=== PATIENT | female | born 1925 | race Caucasian/White ===

== ENCOUNTER 2016-06-10 14:41 | Inpatient (IN) | payer MEDICARE ==
[2016-06-10] MEDS ORDERED: Acetaminophen 650 MG Supp RECTAL ONE (14:55)
[2016-06-10] MEDS ORDERED: Acetaminophen 650 MG Supp ONE (14:57)
[2016-06-10] MEDS ORDERED: Sodium Chloride 0.9% 10 ML Syringe FLUSH PRN (14:59)
[2016-06-10] MEDS ORDERED: Sodium Chloride 0.9% 1,000 ML IV ONE (15:00)
--- NOTE | 2016-06-10 15:13 | EDM.PDOC ---
ED HISTORY OF PRESENT ILLNESS - General Stated Complaint: UNRESPONSIVE Time Seen by Provider: 06/10/16 15:08 Source: Reports: EMS, assisted records History Limitations: Reports: Altered mental status - History of Present Illness INITIAL COMMENTS - FREE TEXT/NARRATIVE: c/o fever and dec'd alertness pt lived at [facility] for over 2y, has dementia, speaks a few words at baseline, reported to have eaten lunch and then less alert and noted to have a temp sent to ED via EMS, full code, has 3 sons listed on NH face sheet reported to be in baseline health this AM - Related Data Allergies/ADRs: Allergies Allergy/AdvReac Type Severity Reaction Status Date / Time No Known Allergies Allergy Verified 06/10/16 15:06 Home Meds: Home Meds Acetaminophen [Tylenol Extra Strength] 1,000 mg PO TID 06/10/16 [History] Celecoxib [CeleBREX] 200 mg PO DAILY 06/10/16 [History] Dextran 70/Hypromellose [Artificial Tears Eye Drops] 1 drop EYEBOTH QID [History] Donepezil HCl [Aricept] 10 mg PO BEDTIME 06/10/16 [History] ED ROS GENERAL - Review of Systems Review Of Systems: See Below Constitutional: Reports: fever, weakness HEENT: Reports: No symptoms Respiratory: Reports: Shortness of Breath Cardiovascular: Reports: No symptoms Endocrine: Reports: no symptoms GI/Abdominal: Reports: No symptoms : Reports: no symptoms Musculoskeletal: Reports: no symptoms Skin: Reports: no symptoms Neurological: Reports: No Symptoms Psychiatric: Reports: Other (dementia) Hematologic/Lymphatic: Reports: no symptoms Immunologic: Reports: no symptoms ED EXAM, GENERAL - Physical Exam Exam: See Below Exam Limited By: Altered mental status General Appearance: mild distress, other Eye Exam: bilateral eye: other (eyes closed, does respond to voice, moans, does not answer questions) Ears: normal external exam Nose: normal inspection, normal mucosa, no blood Throat/Mouth: Normal inspection, Normal lips, Normal oropharynx, Normal voice, No airway compromise Head: atraumatic, normocephalic Neck: normal inspection, supple, non-tender, full range of motion Respiratory/Chest: other (good AE, scattered exp wheezes in anterior wright b/l , no wheezes or rales in posterior wright, mild tachypnea, no cough observed, 100% on NRB, request made to change to 2 l/min via NC, has nail setswana on fingernails) Cardiovascular: other (nl S1/S2, no S3/S4, tachy, 2/6 CHAD at LSB, precordium quiet, 1-2+ edema to knees b/l with impression in skin at sock line, dec'd skin turgor UE with 0.5 sec tenting b/l) GI/Abdominal: soft, non tender, no organomegaly, no distention, no mass Back Exam: normal inspection, full range of motion, NT Extremities: normal range of motion, non-tender Neurological: oriented, CN II-XII intact, no motor/sensory deficits Skin Exam: Warm, Dry, Intact, Normal color, No rash Lymphatic: no adenopathy EKG INTERPRETATION EKG Interpretation Comments: ST 117, VPC x 1, probable LAE, LAFB, no ST change Course - Vital Signs Last Recorded V/S: Last Vital Signs Temp 39.4 C H 06/10/16 14:45 Pulse 66 06/10/16 14:45 Resp 28 H 06/10/16 14:45 BP 157/64 H 06/10/16 14:45 Pulse Ox 85 L 06/10/16 14:45 - Orders/Labs/Meds Orders: Active Orders 24 hr Category Date Time Status EKG Documentation Completion [RC] ASDIRECTED Care 06/10/16 14:57 Active Insert Urinary Catheter [OM.PC] Q24H Care 06/10/16 15:00 Ordered Oxygen Therapy [RC] ASDIRECTED Care 06/10/16 15:16 Active Urinary Catheter Assessment [RC] QSHIFT Care 06/10/16 14:56 Active Chest 1V Frontal [CR] Stat Exams 06/10/16 14:56 Taken CULTURE BLOOD [BC] Urgent Lab 06/10/16 15:15 Received CULTURE BLOOD [BC] Urgent Lab 06/10/16 15:20 Received Azithromycin [Zithromax] 500 mg Med 06/10/16 16:00 Active Sodium Chloride 0.9% [Normal Saline] 250 ml IV Q24H Sodium Chloride 0.9% [Normal Saline] 1,000 ml Med 06/10/16 15:00 Active IV .BOLUS Sodium Chloride 0.9% [Saline Flush] Med 06/10/16 14:59 Active 10 ml FLUSH ASDIRECTED PRN cefTRIAXone [Rocephin] 1 gm Med 06/10/16 16:00 Active Sodium Chloride 0.9% [Normal Saline] 50 ml IV Q24H Blood Culture x2 Reflex Set [OM.PC] Urgent Oth 06/10/16 15:23 Ordered Saline Lock Insert [OM.PC] Routine Oth 06/10/16 14:59 Ordered EKG 12 Lead [EK] Routine Ther 06/10/16 14:56 Ordered Medication Orders Sodium Chloride (Normal Saline) 1,000 mls @ 250 mls/hr IV .BOLUS ONE Stop: 06/10/16 18:59 Last Admin: 06/10/16 15:10 Dose: 250 mls/hr Azithromycin 500 mg/ Sodium (Chloride) 250 mls @ 250 mls/hr IV Q24H [facility] Last Admin: 06/10/16 16:10 Dose: 250 mls/hr Ceftriaxone Sodium 1 gm/ (Sodium Chloride) 50 mls @ 100 mls/hr IV Q24H [facility] Last Admin: 06/10/16 16:10 Dose: 100 mls/hr Sodium Chloride (Saline Flush) 10 ml FLUSH ASDIRECTED PRN PRN Reason: Keep Vein Open Labs: Laboratory Tests 06/10/16 06/10/16 06/10/16 Range/Units 15:05 15:15 15:15 WBC 15.0 H (4.5-12.0) X10-3/uL RBC 4.30 (3.23-5.20) x10(6)uL Hgb 13.8 (11.5-15.5) g/dL Hct 40.7 (30.0-51.3) % MCV 94.6 (80-96) fL MCH 32.2 (27.7-33.6) pg MCHC 34.0 (32.2-35.4) g/dL RDW 12.7 (11.5-15.5) % Plt Count 236 (125-369) X10(3)uL MPV 8.4 (7.4-10.4) fL Add Manual Diff Yes Neutrophils % (Manual) 82 (46-82) % Band Neutrophils % 6 (0-6) % Lymphocytes % (Manual) 8 L (13-37) % Monocytes % (Manual) 4 (4-12) % ABG pH (7.35-7.45) ABG pCO2 (35-45) mmHg ABG pO2 (83-108) mmHg ABG HCO3 (22-26) mmol/L ABG O2 Saturation (96-97) % ABG Base Excess Yordan Test VBG pH O2 Delivery Device Oxygen Flow Rate L Sodium 138 (135-145) mmol/L Potassium 3.3 L (3.5-5.3) mmol/L Chloride 105 (100-110) mmol/L Carbon Dioxide 24 (23-29) mmol/L BUN 22 (8-23) mg/dL Creatinine 0.5 L (0.6-1.3) mg/dL Est Cr Clr Drug Dosing TNP Estimated GFR (MDRD) > 60 (>60) BUN/Creatinine Ratio 44.0 H (9-20) Glucose 177 H (80-116) mg/dL Lactic Acid (0.5-2.2) mmol/L Calcium 9.1 (8.6-10.2) mg/dL Total Bilirubin 1.4 H (0.1-1.3) mg/dL AST 27 (5-27) IU/L ALT 20 (14-26) IU/L Alkaline Phosphatase 72 (56-112) IU/L Troponin I (0.02-0.06) NG/ML C-Reactive Protein 0.6 (0.0-1.0) mg/dL B-Natriuretic Peptide (0-100) pg/mL Total Protein 7.1 (6.0-8.0) g/dL Albumin 4.3 (3.2-4.6) g/dL Globulin 2.8 g/dL Albumin/Globulin Ratio 1.5 Urine Color Yellow (YELLOW) Urine Appearance Slightly cloudy (CLEAR) Urine pH 6.0 (5.0-6.5) Ur Specific [place] 1.015 (1.010-1.025) Urine Protein Negative (NEGATIVE) mg/dL Urine Glucose (UA) Normal (NEGATIVE) mg/dL Urine Ketones 50 H (NEGATIVE) mg/dL Urine Occult Blood Moderate H (NEGATIVE) Urine Nitrite Negative (NEGATIVE) Urine Bilirubin Negative (NEGATIVE) Urine Urobilinogen Normal (NEGATIVE) mg/dL Ur Leukocyte Esterase Negative (NEGATIVE) Urine RBC 0-5 (0) Urine WBC 0-5 (0) Ur Squamous Epith Cells Occasional (NS,R,O) Urine Bacteria Few H (NS) 06/10/16 06/10/16 06/10/16 Range/Units 15:15 15:15 15:15 WBC (4.5-12.0) X10-3/uL RBC (3.23-5.20) x10(6)uL Hgb (11.5-15.5) g/dL Hct (30.0-51.3) % MCV (80-96) fL MCH (27.7-33.6) pg MCHC (32.2-35.4) g/dL RDW (11.5-15.5) % Plt Count (125-369) X10(3)uL MPV (7.4-10.4) fL Add Manual Diff Neutrophils % (Manual) (46-82) % Band Neutrophils % (0-6) % Lymphocytes % (Manual) (13-37) % Monocytes % (Manual) (4-12) % ABG pH (7.35-7.45) ABG pCO2 (35-45) mmHg ABG pO2 (83-108) mmHg ABG HCO3 (22-26) mmol/L ABG O2 Saturation (96-97) % ABG Base Excess Yordan Test VBG pH O2 Delivery Device Oxygen Flow Rate L Sodium (135-145) mmol/L Potassium (3.5-5.3) mmol/L Chloride (100-110) mmol/L Carbon Dioxide (23-29) mmol/L BUN (8-23) mg/dL Creatinine (0.6-1.3) mg/dL Est Cr Clr Drug Dosing Estimated GFR (MDRD) (>60) BUN/Creatinine Ratio (9-20) Glucose (80-116) mg/dL Lactic Acid 1.8 (0.5-2.2) mmol/L Calcium (8.6-10.2) mg/dL Total Bilirubin (0.1-1.3) mg/dL AST (5-27) IU/L ALT (14-26) IU/L Alkaline Phosphatase (56-112) IU/L Troponin I < 0.01 L (0.02-0.06) NG/ML C-Reactive Protein (0.0-1.0) mg/dL B-Natriuretic Peptide 84 (0-100) pg/mL Total Protein (6.0-8.0) g/dL Albumin (3.2-4.6) g/dL Globulin g/dL Albumin/Globulin Ratio Urine Color (YELLOW) Urine Appearance (CLEAR) Urine pH (5.0-6.5) Ur Specific [place] (1.010-1.025) Urine Protein (NEGATIVE) mg/dL Urine Glucose (UA) (NEGATIVE) mg/dL Urine Ketones (NEGATIVE) mg/dL Urine Occult Blood (NEGATIVE) Urine Nitrite (NEGATIVE) Urine Bilirubin (NEGATIVE) Urine Urobilinogen (NEGATIVE) mg/dL Ur Leukocyte Esterase (NEGATIVE) Urine RBC (0) Urine WBC (0) Ur Squamous Epith Cells (NS,R,O) Urine Bacteria (NS) 06/10/16 Range/Units 15:15 WBC (4.5-12.0) X10-3/uL RBC (3.23-5.20) x10(6)uL Hgb (11.5-15.5) g/dL Hct (30.0-51.3) % MCV (80-96) fL MCH (27.7-33.6) pg MCHC (32.2-35.4) g/dL RDW (11.5-15.5) % Plt Count (125-369) X10(3)uL MPV (7.4-10.4) fL Add Manual Diff Neutrophils % (Manual) (46-82) % Band Neutrophils % (0-6) % Lymphocytes % (Manual) (13-37) % Monocytes % (Manual) (4-12) % ABG pH 7.53 H (7.35-7.45) ABG pCO2 25 L (35-45) mmHg ABG pO2 47 L* (83-108) mmHg ABG HCO3 20 L (22-26) mmol/L ABG O2 Saturation 88 L (96-97) % ABG Base Excess TNP Yordan Test Not performed VBG pH Cancelled O2 Delivery Device Nasal cannula Oxygen Flow Rate 0 L Sodium (135-145) mmol/L Potassium (3.5-5.3) mmol/L Chloride (100-110) mmol/L Carbon Dioxide (23-29) mmol/L BUN (8-23) mg/dL Creatinine (0.6-1.3) mg/dL Est Cr Clr Drug Dosing Estimated GFR (MDRD) (>60) BUN/Creatinine Ratio (9-20) Glucose (80-116) mg/dL Lactic Acid (0.5-2.2) mmol/L Calcium (8.6-10.2) mg/dL Total Bilirubin (0.1-1.3) mg/dL AST (5-27) IU/L ALT (14-26) IU/L Alkaline Phosphatase (56-112) IU/L Troponin I (0.02-0.06) NG/ML C-Reactive Protein (0.0-1.0) mg/dL B-Natriuretic Peptide (0-100) pg/mL Total Protein (6.0-8.0) g/dL Albumin (3.2-4.6) g/dL Globulin g/dL Albumin/Globulin Ratio Urine Color (YELLOW) Urine Appearance (CLEAR) Urine pH (5.0-6.5) Ur Specific [place] (1.010-1.025) Urine Protein (NEGATIVE) mg/dL Urine Glucose (UA) (NEGATIVE) mg/dL Urine Ketones (NEGATIVE) mg/dL Urine Occult Blood (NEGATIVE) Urine Nitrite (NEGATIVE) Urine Bilirubin (NEGATIVE) Urine Urobilinogen (NEGATIVE) mg/dL Ur Leukocyte Esterase (NEGATIVE) Urine RBC (0) Urine WBC (0) Ur Squamous Epith Cells (NS,R,O) Urine Bacteria (NS) Meds: Medications Generic Name Dose Route Start Last Admin Trade Name Freq PRN Reason Stop Dose Admin Sodium Chloride 1,000 mls @ 250 mls/hr 06/10/16 15:00 06/10/16 15:10 Normal Saline IV 06/10/16 18:59 250 mls/hr .BOLUS ONE Administration Azithromycin 500 mg/ Sodium 250 mls @ 250 mls/hr 06/10/16 16:00 06/10/16 16: 10 Chloride IV 250 mls/hr Q24H [facility]AY Administration Ceftriaxone Sodium 1 gm/ 50 mls @ 100 mls/hr 06/10/16 16:00 06/10/16 16:10 Sodium Chloride IV 100 mls/hr Q24H [facility] Administration Sodium Chloride 10 ml 06/10/16 14:59 Saline Flush FLUSH ASDIRECTED PRN Keep Vein Open Discontinued Medications Generic Name Dose Route Start Last Admin Trade Name Freq PRN Reason Stop Dose Admin Acetaminophen Confirm 06/10/16 14:57 06/10/16 15:10 Tylenol Administered 06/10/16 14:58 Not Given Dose 650 mg .ROUTE .STK-MED ONE Acetaminophen 650 mg 06/10/16 14:55 06/10/16 15:08 Tylenol RECTAL 06/10/16 14:56 650 mg NOW ONE Administration - Radiology Interpretation Free Text/Narrative:: prelim ED reading of CxR, 1 view, portable, RLL infiltrate, scattered air bronchograms, flattened diaphragms, mild vascular congestion - Re-Assessments/Exams Free Text/Narrative Re-Assessment/Exam: 06/10/16 16:46 d/w Dr Juarez who accepted pt in admission, 2 sons are undecided re code status, say they want everything done "that can restore her health". Pt makes sounds but is nonverbal at baseline, walks with walker, feeds herself. Flu neg, u/a neg, BNP and trop neg, shows respiratory alkalosis, labs reviewed with family. Departure - Departure Time of Disposition: 16:49 Disposition: Admitted As Inpatient 68 Condition: fair Clinical Impression: Right lower lobe pneumonia, Hypokalemia, Peripheral edema, Dehydration, Ketonuria, Dementia, Leukocytosis, Left shift - My Orders Last 24 Hours: My Active Orders 06/10/16 14:56 Urinary Catheter Assessment [RC] QSHIFT Chest 1V Frontal [CR] Stat EKG 12 Lead [EK] Routine 06/10/16 14:57 EKG Documentation Completion [RC] ASDIRECTED 06/10/16 14:59 Sodium Chloride 0.9% [Saline Flush] 10 ml FLUSH ASDIRECTED PRN Saline Lock Insert [OM.PC] Routine 06/10/16 15:00 Insert Urinary Catheter [OM.PC] Q24H Sodium Chloride 0.9% [Normal Saline] 1,000 ml IV .BOLUS 06/10/16 15:15 CULTURE BLOOD [BC] Urgent 06/10/16 15:16 Oxygen Therapy [RC] ASDIRECTED 06/10/16 15:20 CULTURE BLOOD [BC] Urgent 06/10/16 15:23 Blood Culture x2 Reflex Set [OM.PC] Urgent 06/10/16 16:00 Azithromycin [Zithromax] 500 mg Sodium Chloride 0.9% [Normal Saline] 250 ml IV Q24H cefTRIAXone [Rocephin] 1 gm Sodium Chloride 0.9% [Normal Saline] 50 ml IV Q24H - Assessment/Plan Last 24 Hours: My Active Orders 06/10/16 14:56 Urinary Catheter Assessment [RC] QSHIFT Chest 1V Frontal [CR] Stat EKG 12 Lead [EK] Routine 06/10/16 14:57 EKG Documentation Completion [RC] ASDIRECTED 06/10/16 14:59 Sodium Chloride 0.9% [Saline Flush] 10 ml FLUSH ASDIRECTED PRN Saline Lock Insert [OM.PC] Routine 06/10/16 15:00 Insert Urinary Catheter [OM.PC] Q24H Sodium Chloride 0.9% [Normal Saline] 1,000 ml IV .BOLUS 06/10/16 15:15 CULTURE BLOOD [BC] Urgent 06/10/16 15:16 Oxygen Therapy [RC] ASDIRECTED 06/10/16 15:20 CULTURE BLOOD [BC] Urgent 06/10/16 15:23 Blood Culture x2 Reflex Set [OM.PC] Urgent 06/10/16 16:00 Azithromycin [Zithromax] 500 mg Sodium Chloride 0.9% [Normal Saline] 250 ml IV Q24H cefTRIAXone [Rocephin] 1 gm Sodium Chloride 0.9% [Normal Saline] 50 ml IV Q24H
[2016-06-10] MEDS ORDERED: cefTRIAXone 1 GM in Sodium Chloride 0.9% 50 ML IV SCH ×2 (16:00→17:00)
[2016-06-10] MEDS ORDERED: Azithromycin 500 MG in Sodium Chloride 0.9% 250 ML IV SCH (16:00)
[2016-06-10] MEDS ORDERED: Ondansetron 4 MG/2 ML SDV IV PRN (16:56)
[2016-06-10] MEDS ORDERED: NS + KCl 20mEq/L 1,000 ML IV SCH (17:15)
[2016-06-10] MEDS ORDERED: Acetaminophen 650 MG Supp RECTAL PRN (18:13)
[2016-06-10] MEDS: Acetaminophen 325 MG Tab PO SCH (18:16)
--- NOTE | 2016-06-10 20:04 | PCM.HP ---
H&P History of Present Illness - General Date of Service: 06/10/16 Admit Problem/Dx: Admission Diagnosis/Problem Admission Diagnosis/Problem Pneumonia Source of Information: Family, RN notes reviewed History Limitations: Reports: Altered mental status - History of Present Illness Initial Comments - Free Text/Narative: This is an 89-year-old female from an independent living facility who was brought in because of collapse. The family reports that she felt limp and became unresponsive the ambulance was called at that point. She was found to have a fever and was unresponsive. She has been previously healthy and yesterday it was making her hair,alert. She does have dementia severe, also arthritis, and benign essential hypertension and been stable up until yesterday. There was no report of any cough, vomiting, aspiration, seizure chest pain or shortness of breath. - Related Data Allergies/Adverse Reactions: Allergies Allergy/AdvReac Type Severity Reaction Status Date / Time No Known Allergies Allergy Verified 06/10/16 15:06 Home Medications: Home Meds Acetaminophen [Tylenol Extra Strength] 1,000 mg PO TID 06/10/16 [History] Bisacodyl [Dulcolax] 10 mg RC DAILY PRN 06/10/16 [History] Calcium Carbonate [Tums] 1,000 mg PO Q4H PRN 06/10/16 [History] Celecoxib [CeleBREX] 200 mg PO DAILY 06/10/16 [History] Dextran 70/Hypromellose [Artificial Tears Eye Drops] 1 drop EYEBOTH QID [History] Donepezil HCl [Aricept] 10 mg PO BEDTIME 06/10/16 [History] Ibuprofen 200 mg PO Q6H PRN 06/10/16 [History] Loperamide HCl [Anti-Diarrheal] 2 mg PO Q1H PRN 06/10/16 [History] Magnesium Hydroxide [Milk of Magnesia] 30 ml PO DAILY PRN 06/10/16 [History] Memantine HCl [Namenda Xr] 28 mg PO DAILY 06/10/16 [History] Multivitamin [Daily Multiple Vitamin] 1 tab PO DAILY 06/10/16 [History] Omeprazole 20 mg PO DAILY 06/10/16 [History] guaiFENesin [Robitussin] 200 mg PO Q4H PRN 06/10/16 [History] Past Medical History HEENT History: Reports: Hard of hearing, Impaired vision Cardiovascular History: Reports: Hypertension Respiratory History: Reports: Other (see below) Other Respiratory History: Pneumonia current diagnosis. Gastrointestinal History: Reports: Other (see below) Other Gastrointestinal History: Duodenal ulcer E BUSINESS MANAGER History: Reports: Musculoskeletal History: Reports: Osteoporosis Neurological History: Reports: Other (see below) Other Neuro History: Dementia Psychiatric History: Reports: Dementia Endocrine/Metabolic History: Reports: Osteoporosis Hematologic History: Reports: Anemia Oncologic (Cancer) History: Reports: Colon - Infectious Disease History Infectious Disease History: Reports: Shingles - Past Surgical History Head Surgeries/Procedures: Reports: None HEENT Surgical History: Reports: None Cardiovascular Surgical History: Reports: None Respiratory Surgical History: Reports: None GI Surgical History: Reports: None Endocrine Surgical History: Reports: None Neurological Surgical History: Reports: None Musculoskeletal Surgical History: Reports: Other (see below) Other Musculoskeletal Surgeries/Procedures:: Cortisone injection to the right knee approx. one month ago. Oncologic Surgical History: Reports: None Dermatological Surgical History: Reports: None Social & Family History - Family History Family Medical History: Noncontributory - Tobacco Use Smoking Status *Q: Never Smoker Tobacco Use Comment: Unable to obtain. Patient has dementia and is in and out of sleep at this time. Second Hand Smoke Exposure: Yes - Caffeine Use Caffeine Use: Reports: Coffee - Recreational Drug Use Recreational Drug Use: No H&P Review of Systems - Review of Systems: Review Of Systems: Unable To Obtain Exam - Exam Exam: See Below - Vital Signs Vital Signs: Last Vital Signs Temp 101.7 F H 06/10/16 17:05 Pulse 116 H 06/10/16 17:05 Resp 18 06/10/16 17:05 BP 133/54 L 06/10/16 17:05 Pulse Ox 92 L 06/10/16 17:05 Weight: 61.28 kg - Exam Quality Assessment: supplemental oxygen General: obtunded HEENT: PERRLA, Hearing intact, Mucosa moist & pink, Nares patent, Normal nasal septum, Posterior pharynx clear, Conjunctiva clear, EOMI, EACs clear, TMs clear Neck: supple, trachea midline, 2 Lungs: Clear to auscultation, Normal respiratory effort Cardiovascular: regular rate, regular rhythm, systolic murmur Abdomen: normal bowel sounds, distention, guarding, tenderness (Female) Exam: Deferred Rectal (Female) Exam: Deferred Extremities: normal inspection, normal pulses Skin: warm, dry, intact Neurological: other (unable to test). No: cranial nerves intact, reflexes equal bilateral, strength equal bilateral Neuro Extensive - Mental Status: flexor response to pain, withdraws to pain. No : alert, oriented x3, normal mood/affect, normal cognition Psychiatric: other (obtunded) - Patient Data Result Diagrams: 06/10/16 15:15 06/10/16 15:15 Imaging Impressions last 24 hrs: Reviewed CXR-?RL inflitrate *Q Meaningful Use (ADM) - VTE *Q VTE Criteria *Q: - Stroke *Q Stroke Criteria *Q: - AMI *Q AMI Criteria *Q: - Problem List (1) Fever SNOMED Code(s): 456321156 ICD Code: R50.9 - FEVER, UNSPECIFIED Status: Acute Current Visit: Yes Qualifiers: Fever type: unspecified Qualified Code(s): R50.9 - Fever, unspecified (2) Delirium SNOMED Code(s): 1039365 ICD Code: R41.0 - DISORIENTATION, UNSPECIFIED Status: Acute Current Visit : Yes (3) Syncope and collapse SNOMED Code(s): 770748690 ICD Code: R55 - SYNCOPE AND COLLAPSE Status: Acute Current Visit: Yes (4) HTN (hypertension) SNOMED Code(s): 09416975 ICD Code: I10 - ESSENTIAL (PRIMARY) HYPERTENSION Status: Chronic Current Visit: Yes Qualifiers: Hypertension type: essential hypertension Qualified Code(s): I10 - Essential (primary) hypertension (5) Dementia SNOMED Code(s): 99777352 ICD Code: F03.90 - UNSPECIFIED DEMENTIA WITHOUT BEHAVIORAL DISTURBANCE Status: Chronic Current Visit: Yes Qualifiers: Dementia type: Alzheimer's disease Alzheimer's disease onset: unspecified onset Dementia behavioral disturbance: with behavioral disturbance Qualified Code(s): G30.8 - Other Alzheimer's disease; F02.81 - Dementia in other diseases classified elsewhere with behavioral disturbance (6) Heart murmur SNOMED Code(s): 15112459 ICD Code: R01.1 - CARDIAC MURMUR, UNSPECIFIED Status: Acute Current Visit : Yes (7) Palliative care status SNOMED Code(s): 303210515 ICD Code: Z51.5 - ENCOUNTER FOR PALLIATIVE CARE Status: Acute Current Visit: Yes Problem List Initiated/Reviewed/Updated: Yes Orders Last 24hrs: Active Orders 24 hr Category Date Time Status Patient Status [ADT] Routine ADT 06/10/16 16:56 Active Height and Weight [RC] 06 Care 06/10/16 16:56 Active Intake and Output [RC] 08,16,00 Care 06/10/16 16:57 Active Oxygen Therapy [RC] PRN Care 06/10/16 16:56 Active Up With Assistance [RC] ASDIRECTED Care 06/10/16 16:56 Active VTE/DVT Education [RC] Per Unit Routine Care 06/10/16 16:56 Active Vital Signs [RC] Q4H Care 06/10/16 16:56 Active Clear Liquid Diet [DIET] Diet 06/10/16 Dinner Active BASIC METABOLIC PANEL,BMP [CHEM] AM Lab 06/11/16 05:11 Ordered CBC WITH AUTO DIFF [HEME] AM Lab 06/11/16 05:11 Ordered CBC WITH AUTO DIFF [HEME] AM Lab 06/12/16 05:11 Ordered CBC WITH AUTO DIFF [HEME] AM Lab 06/13/16 05:11 Ordered CBC WITH AUTO DIFF [HEME] AM Lab 06/14/16 05:11 Ordered CBC WITH AUTO DIFF [HEME] AM Lab 06/15/16 05:11 Ordered COMPREHENSIVE METABOLIC PN,CMP [CHEM] AM Lab 06/11/16 05:11 Ordered CRP [C-REACTIVE PROTEIN] [CHEM] AM Lab 06/11/16 05:11 Ordered INFLUENZA A+B AG SCREEN [RM] Stat Lab 06/10/16 19:56 Uncollected LACTIC ACID [CHEM] AM Lab 06/11/16 05:11 Ordered Acetaminophen [Tylenol] Med 06/10/16 17:15 Active 650 mg PO Q6H Acetaminophen [Tylenol] Med 06/10/16 18:13 Active 650 mg RECTAL Q6H PRN Enoxaparin [Lovenox] Med 06/11/16 09:00 Active 30 mg SUBCUT DAILY NS + KCl 20mEq/L [Normal Saline with 20 mEq KCl] 1,000 Med 06/10/16 17:15 Active ml IV ASDIRECTED Ondansetron [Zofran] Med 06/10/16 16:56 Active 4 mg IV Q4H PRN Resuscitation Status Routine Resus Stat 06/10/16 19:56 Ordered Medication Orders Acetaminophen (Tylenol) 650 mg PO Q6H [facility] Last Admin: 06/10/16 18:16 Dose: Acetaminophen (Tylenol) 650 mg RECTAL Q6H PRN PRN Reason: Fever Last Admin: 06/10/16 18:32 Dose: 650 mg Enoxaparin Sodium (Lovenox) 30 mg SUBCUT DAILY [facility] Azithromycin 500 mg/ Sodium (Chloride) 250 mls @ 250 mls/hr IV Q24H [facility] Last Admin: 06/10/16 16:10 Dose: 250 mls/hr Ceftriaxone Sodium 1 gm/ (Sodium Chloride) 50 mls @ 100 mls/hr IV Q24H [facility] Last Admin: 06/10/16 16:10 Dose: 100 mls/hr Potassium Chloride/Sodium Chloride (Normal Saline With 20 Meq Kcl) 1,000 mls @ 50 mls/hr IV ASDIRECTED [facility] Last Admin: 06/10/16 19:05 Dose: 50 mls/hr Ondansetron HCl (Zofran) 4 mg IV Q4H PRN PRN Reason: Nausea/Vomiting Sodium Chloride (Saline Flush) 10 ml FLUSH ASDIRECTED PRN PRN Reason: Keep Vein Open Assessment/Plan Comment:: I spoke with the family at the bedside. Patient is delirious and obtunded. And has a high temperature. The chest x-ray other new infarct on the right without be waiting for the official report before making occult pneumonia. The UA was negative show white cell count of 15,000. At this point will treat with IV fluid replacements, broad-spectrum antibiotic coverage with Rocephin and azithromycin, and temperature control. Influenza, lactic acid, blood cultures, CRP, and a repeat CBC were ordered for the morning. The family do not want resuscitation. If she does not improve mentation CT will be necessary both head or possibly abdomen abdomen and pelvis because of the tenderness on examination.
[2016-06-11] MEDS: Acetaminophen 325 MG Tab PO SCH ×5 (00:43→23:36)
[2016-06-11] MEDS: Enoxaparin 40 MG/0.4 ML Syringe SUBCUT SCH (09:34)
--- NOTE | 2016-06-11 10:39 | PN ---
DATE SEEN: 06/11/2016 CHIEF COMPLAINT: Confusion. HISTORY OF PRESENT ILLNESS: This is an 89-year-old female who has had alteration of mental status and fever. Yesterday, she was unresponsive, this morning she is able to wake up. It is unclear whether she has been able to pass any stool or gas. Abdomen seemed more distended today. She complains of no headache and has a mild cough. History is difficult to take from her, it is mostly from the nursing and the family members. She has a history of severe dementia. REVIEW OF SYSTEMS: All other systems were unremarkable. SOCIAL HISTORY: Lives at [facility]. PHYSICAL EXAMINATION: GENERAL: She is mildly ill. VITAL SIGNS: Her blood pressure today is 88/41, temp 98.7. ABDOMEN: Distended and tympanic to percussion. Mild diffuse tenderness. No masses. Bowel sounds are present. CHEST: Clear. CARDIOVASCULAR: Irregular rate and rhythm and a harsh systolic murmur. LABORATORY DATA: White cell count today is 16.5. Basic profile was unremarkable. C-reactive protein is 8.2, lactic acid 1.1. I did discuss the x- ray with the radiologist, and there is some possibility of increased infiltrate on the right lower base. IMPRESSION: 1. Alteration of mental status. 2. Acute febrile illness, likely due to pneumonia. 3. Dementia. 4. Heart murmur. 5. Hypertension, stable. PLAN: Continue IV fluid replacement, Rocephin, and azithromycin. I would like to know the cause of abdominal distention, so I will get more history about the stool and maybe do a bladder scan to see if there is any urinary retention. For now, we will continue with antibiotics and IV fluids. We will also consult with physical and occupational therapy. /[id number] RAHUL/JENNIFERL
--- NOTE | 2016-06-11 14:40 | CR ---
INDICATION: Short of breath, fever. CHEST: An AP portable upright view of the chest 06/10/2016 was compared with , revealing heavy markings at the lung bases, emphasized by relatively poor inspiration. Especially at the right lung base, there is an area of increased markings, which could represent a small focal area of pneumonia - patchy bronchopneumonia superimposed on fibrosis. No gross consolidating pneumonia or effusion was identified. Findings also are compatible with COPD, ASHD with cardiomegaly, and dextroconcave scoliosis lower thoracic - thoracolumbar spine. The aorta is tortuous and calcified in the arch area. Overlying EKG leads are noted. Demineralization is suggested compatible with osteoporosis. IMPRESSION: 1. 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 2. COPD. 3. ASHD with mild cardiomegaly. 4. Probable osteoporosis. 5. 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 MTDD
[2016-06-11] MEDS: NS + KCl 20mEq/L 1,000 ML IV SCH (15:20)
[2016-06-11] MEDS ORDERED: cefTRIAXone 1 GM in Sodium Chloride 0.9% 50 ML IV SCH (16:00)
[2016-06-11] MEDS ORDERED: Azithromycin 500 MG in Sodium Chloride 0.9% 250 ML IV SCH (17:00)
[2016-06-12] MEDS: Acetaminophen 325 MG Tab PO SCH ×2 (05:14→12:13)
[2016-06-12] MEDS: Enoxaparin 40 MG/0.4 ML Syringe SUBCUT SCH (09:20)
--- NOTE | 2016-06-12 09:42 | PN ---
DATE SEEN: 06/12/2016 CHIEF COMPLAINT: Pneumonia. HPI: This is an 89-year-old female with fever, cough, and has been treated for pneumonia. She is much better today, alert, but has dementia. No fever, has had no bowel movements, and only a smear. Abdomen has slightly been distended. REVIEW OF SYSTEMS: Negative for vomiting or shortness of breath. ALLERGIES: None. PHYSICAL EXAM: GENERAL: Well nourished, seated up in bed. VITAL SIGNS: Blood pressure is 99/51, temperature 97.9. CHEST: Clear. HEART: Regular rhythm. ABDOMEN: Soft, mildly distended and tender to deep palpation. No masses. LABORATORY DATA: White cell count today is 7.4. IMPRESSION: 1. Community-acquired pneumonia. 2. Constipation. 3. Dementia. 4. Hypertension. PLAN: Discharge the patient home today. Follow up in the office next week with Dr. Benitez. /[id number] RAHUL/ALEXANDRA
--- NOTE | 2016-06-12 09:58 | DISCH ---
DISCHARGE DATE: 06/12/2016 REASON FOR ADMISSION: Alteration of mental status, syncope and collapse, dehydration, pneumonia, dementia. DISCHARGE DIAGNOSES: 1. Community-acquired pneumonia. 2. Delirium from fever and pneumonia. 3. Constipation. 4. Dementia. 5. Hypertension, stable. CONSULTATIONS: None. BRIEF HISTORY AND HOSPITAL COURSE: This 89-year-old female from [facility] was admitted after she fell and became limp, was found to have a fever and was delirious. A chest x-ray showed fibrosis and right lower lobe pneumonia. She was treated with azithromycin and Rocephin and fluids. Symptoms improved significantly over the first 12 hours with IV fluid replacement, was discharged home on the on Augmentin 875 mg p.o. b.i.d. Will continue with her home medications. The family asked to discontinue the Celebrex. She will see Dr. Benietz later this week. I spent more than 35 minutes in the discharge of the patient. /[id number] RAHUL/ALEXANDRA
[2016-06-12] MEDS ORDERED: Polyethylene Glycol 3350 Powder 17 GM Packet PO ONE (10:00)
[2016-06-12] MEDS: NS + KCl 20mEq/L 1,000 ML IV SCH (12:13)
[2016-06-12 13:29] VITALS: BP 148/75
[2016-06-12] MEDS ORDERED: cefTRIAXone 1 GM in Sodium Chloride 0.9% 50 ML IV SCH (16:00)
[2016-06-12] MEDS ORDERED: Azithromycin 500 MG in Sodium Chloride 0.9% 250 ML IV SCH (17:00)
== END 2016-06-12 14:50 | disposition home health service (06) | DRG 194 ==
LOC: FB.ED 14:41 → FB.MS 16:49
PROVIDERS: ADMIT Emergency Medicine; ATTEND Family Medicine
DX: J18.9 Pneumonia, unspecified organism (principal); E87.6 Hypokalemia; E86.0 Dehydration; R82.4 Acetonuria; F02.81 Dementia in other diseases classified elsewhere, unspecified severity, with behavioral disturbance; D72.829 Elevated white blood cell count, unspecified; K59.00 Constipation, unspecified; F03.90 Unspecified dementia, unspecified severity, without behavioral disturbance, psychotic disturbance, mood disturbance, and anxiety; I10 Essential (primary) hypertension; M19.90 Unspecified osteoarthritis, unspecified site; R01.1 Cardiac murmur, unspecified; Z51.5 Encounter for palliative care; Z66 Do not resuscitate; R60.0 Localized edema
CPT/HCPCS: 36415 ×2; 51702; 71010; 80053; 81001; 82803; 83605; 83880; 84484; 85025; 86140; 87040 ×2; 87804 ×2; 93005; 96361; 96365; 96368; 99285 ×2; A9270; J0456; J0696; J7040; J7050 ×2; J1650; J3480

== ENCOUNTER 2016-07-25 08:01 | Emergency (ER) | payer MEDICARE ==
[2016-07-25 11:29] VITALS: BP 120/65
--- NOTE | 2016-07-26 11:56 | ER ---
DATE SEEN: 07/25/2016 TIME SEEN: The patient is seen at 0845 hours. This is a [facility], who [facility]2016 and had a TB skin test twice at 1700 hours. She presented to the ED last night at approximately 2230 hours. Approximately 52-1/2 hours after initial placement of TB skin test, she had a 22 x 17 mm raised area of erythema. I discussed the patient's case with the staff and noted that a chest x-ray is needed. QuantiFERON-TB Gold skin test is needed. Discussed that having chest x- rays on Tuesday will be appropriate. I felt it was 2200 hours and did not to bother Infectious Disease at [facility], consequently would call in the morning. I spoke to the Infectious Disease this morning about the status and Dr. Tyrell Mcgee, Infectious Disease, [facility], noted that as unlikely she had TB even though she has a positive TB skin test. TB skin test is indirect indication of some exposure to TB in her lifetime but is not diagnostic, but simply a screening test. Since the chest x-ray is negative, did not feel the patient had tuberculosis, however, it is interested that she had pneumonia, 06/10/2016. At that time, the chest x-ray revealed minimal patchy pneumonia superimposed on fibrosis of right lung base with pulmonary fibrosis in both lung bases, COPD, atherosclerotic heart disease with mild cardiomegaly and probable osteoporosis and degenerative changes in the right glenohumeral joint with impingement syndrome likely. I checked with the previous residence where the patient lives until 06/23/2016 - [facility] in [place], [place]. At that time, she is noted to have had negative. Last negative skin test was noted be in June, which was read negative at 0 mm swelling at and she had a 2-step TB skin test. So, on 12/19/13, she had a reading at 12/21/13 of 0 mm. PAST MEDICAL HISTORY: Depression, significant dementia, GERD, duodenal ulcer, presbycusis, vision abnormality, osteoporosis, anemia, colon cancer, and previous knee cortisone injection in April 1999, systolic murmur, and disorientation. She is a poor historian. Most of the history is obtained from the chart. We were unable to get the [facility] information about the patient's previous TB skin test, was able to obtain it today by telephone. Meri Pabon made arrangements for this information after staff administrators came into glean the records for that data. Approximately at 1105 hours, we received information back from the staff at the [facility] administration staff. Consultation was obtained from Tyrell Mcgee, Infectious Disease, [facility], who had a lengthy discussion about the TB skin test and screening, and approached to manage this patient. He notes the skin test are indirect test. They assume had the patient TB exposure in her lifetime, but does not diagnose TB. He noted without active symptoms and with a negative chest x-ray, the patient probably did not have active TB. He noted also Levaquin could have partially treated TB if she has had it (treated 06/10/2016, ten days). He did not feel the patient had a TB. The patient needed a QuantiFERON Gold test. If it is positive, then perhaps she had a latent TB, but he does not feel she has active TB. He noted the web site that is going to treat her with risk of using INH and the risk of using INH is greater for causing hepatitis than not treating her. He advised against treating her if there is a positive QuantiFERON gold. Further consultation may be obtained but at this time, he advised it was not necessary to treat with INH. The risk for INH to hepatitis is greater than the risk of not treating her for latent TB. If she was treated with TB, she will have 25 mg of B12 today and 300 mg INH, and follow CBC every two weeks. Again, he reinstated the risk of hepatitis is greater than the risk of not treating it. He utilized a web site [email or web address][email or web address]. [facility]'s recommendation of evaluating the risk for hepatitis versus the risk of a hospitalization and the risk for developing TB. The patient's risk is less than 1/10th percent. Over five years period, the risk for hepatitis and need for hospitalization would be greater starting INH. He did not recommend using INH or B6 and he did not feel the patient need to be screened, or wear a mask or be isolated in a [facility] or put a negative pressure ventilation. PHYSICAL EXAMINATION: VITAL SIGNS: Blood pressure 130/92, heart rate 86 and regular, respirations 20, oxygen saturation 97%, temperature is 36.3 degrees centigrade. GENERAL: The patient is not alert. She is confused, has marked dementia. Very demented. Does not follow commands. Responds to some other questions minimally but has sometimes one-word sentences. HEENT and NECK: Mouth is straight open. PERRLA intact. Pharynx without abnormality dry mucosa. No cervical adenopathy. No thyromegaly. LUNGS: Clear to auscultation without rales or rhonchi except for the posterior bases and few rhonchi. No wheezes. No irregularity of heartbeat, with soft systolic murmur. Crescendo decrescendo. ABDOMEN: Soft. No guarding. No abdominal discomfort. EXTREMITIES: Without edema. Deep tendon reflexes absent. Lower extremities, hypoactive. Upper extremities, moderate contraction noted, right upper forearm. DERMIS: 21 x 22 x 17 mm slightly raised erythema of right forearm TB skin test. ASSESSMENT: 1. 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 2. Per Infectious Disease specialist, the patient has been exposed to TB some time in her life. 3. 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 a. Cansassi mycoplasma. b. organism. c. Mycoplasma marinum. The latter comes from fish tank. Former would have cavitating lesions which is the Cansassi and the is very were and has serious infections and symptoms. He doubted she had any of these. PLAN: Await for the results of the TB serum QuantiFERON Gold before even considering therapy and the therapy needs to be discussed with the family and the [facility] staff. retirement staff is not at risk for tuberculosis because of latent TB, this is not active TB. /[id number] KAVON/ALEXANDRA
== END 2016-07-25 11:30 ==
LOC: FB.ED 08:01
DX: R76.11 Nonspecific reaction to tuberculin skin test without active tuberculosis (principal); R76.12 Nonspecific reaction to cell mediated immunity measurement of gamma interferon antigen response without active tuberculosis; J44.9 Chronic obstructive pulmonary disease, unspecified; I25.10 Atherosclerotic heart disease of native coronary artery without angina pectoris; F32.9 Major depressive disorder, single episode, unspecified; K21.9 Gastro-esophageal reflux disease without esophagitis; M81.0 Age-related osteoporosis without current pathological fracture; D64.9 Anemia, unspecified; Z85.038 Personal history of other malignant neoplasm of large intestine
CPT/HCPCS: 36415; 71010; 80053; 85025; 86480; 99282; 99284